=== PATIENT | female | born 1995 | race Hispanic/Latino ===

== ENCOUNTER 2018-02-18 22:52 | Emergency (ER) | payer OTHER, SELFPAY ==
--- OUTSIDE RECORDS SUMMARY | 2018-02-18 22:54 | XMS REPORT ---
:1995 Author Organization eClinicalWorks Care Team Providers Name Role Phone Meena Carreno Provider Role Unavailable Allergies, Adverse Reactions, Alerts Substance Reaction Event Type Amoxicillin Info Not Available Drug Allergy Problems Problem Type Condition Code Onset Dates Condition Status Problem BMI 45.0-49.9, adult Z68.42 Active Problem Hypomenorrhea/oligomenorrhea N91.5 Active Problem IUD (intrauterine device) in place Z97.5 Active Assessment BMI 45.0-49.9, adult Z68.42 Active Assessment Hypomenorrhea/oligomenorrhea N91.5 Active Assessment IUD (intrauterine device) in place Z97.5 Active Assessment IUD check up Z30.431 Active Medications Medication Code Code Instructions Start End Status Dosage System Date Date Mirena (52 MG) [facility] [place] [id number] 20 MCG/24HR Feb 26, Active not Intrauterine 2016 defined Results No Known Results Summary Purpose eClinicalWorks Submission
--- OUTSIDE RECORDS SUMMARY | 2018-02-18 22:54 | XMS REPORT ---
[...] device) in place Z97.5 Active Assessment IUD (intrauterine device) in place Z97.5 Active Assessment Encounter for removal of Z30.432 Active intrauterine contraceptive device Medications Medication Code Code Instructions Start End Status Dosage System Date Date Lo Loestrin Fe [facility] [id number] 1 MG-10 MCG / January 13, Active 1 tablet 10 MCG Orally 2018 Once a day Mirena (52 MG) [facility] [id number] 20 MCG/24HR Feb 26, Inactive not Intrauterine 2016 defined Results Name Result Date Reference Range Unit Abnormality Flag TEST URINE ----RESULTS neg 20180113 URINALYSIS AUTO W/O SCOPE (10368) ----PROTEIN 1+ 20180113 ----pH 5.5 20180113 ----NIT neg 20180113 ----CHARLI TRACE 20180113 ----URO 0.2 20180113 ----SPECIFIC GRAVITY 1.030 20180113 ----BLO 1+ 20180113 ----BILIRUBIN neg 20180113 ----KETONES neg 20180113 ----GLUCOSE neg 20180113 Summary Purpose eClinicalWorks Submission
[2018-02-19 00:03] LABS: Urine Blood TRACE (NEG); Urine Glucose NEGATIVE (NEG); Urine Protein 2+ (NEG); Urine Specific Gravity >1.030 (1.005-1.030)
[2018-02-19] MEDS ORDERED: KETOROLAC 30 MG/ML INJ ONE (00:13)
[2018-02-19 00:26] LABS: BUN Blood Urea Nitrogen 13 mg/dL (7-18); Bicarbonate 27 mmol/L (21-32); Glucose Level 110 mg/dL (74-106); Potassium 3.2 mmol/L (3.5-5.1); Sodium Level 142 mmol/L (136-145)
[2018-02-19 00:29] LABS: Absolute Lymphocytes (CBC) 1.9 K/uL (0.7-4.9); Absolute Monocytes 0.4 K/uL (0.1-1.3); Absolute Neutrophil 1.7 K/uL (1.8-8.0); Basophils % 0.1 % (0-1.3); Eosinophils % 0.4 % (0-4.4); Hematocrit 36.9 % (36.0-45.0); Lymphocytes % 46.3 % (15.3-44.8); MCH 26.7 pg (27.0-35.0); MCV 79.4 fL (80-100); MPV 7.8 fL (7.6-11.3); Monocytes % 9.9 % (3.3-12.3); RBC Red Blood Cell Count 4.64 M/uL (3.86-4.86)
[2018-02-19] MEDS ORDERED: POTASSIUM CL SA 10 MEQ TAB PO ONE (00:48)
--- NOTE | 2018-02-19 01:29 | EDPHYS ---
Physician Documentation [facility] Name: Nazanin Schmid Age: 22 yrs Sex: Female : 1995 Arrival Date: 02/18/2018 Time: 22:53 Bed 6 Private MD: ED Physician Zev Knox HPI: 02/19 00:40 This 22 yrs old Female presents to ER via Ambulatory with complaints of Chest jr8 Pain. 00:40 The patient or guardian reports chest pain that is located primarily in the anterior jr8 chest wall, bilaterally. The pain does not radiate. Associated signs and symptoms: Pertinent positives: body aches and chills . The chest pain is described as sharp. Duration: The patient or guardian reports multiple episodes. Modifying factors: The symptoms are alleviated by nothing. the symptoms are aggravated by breathing. Severity of pain: At its worst the pain was moderate in the emergency department the pain is unchanged. The patient has not experienced similar symptoms in the past. The patient has not recently seen a physician. Stated that she has had body aches and chills. Started to lose voice and now has chest pain with breathing. Denies cough or shortness of breath. Has felt feverish but subjectively only. Denies vomiting or diarrhea . 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 - Social history:: Smoking status: Patient/guardian denies using tobacco. - Ebola Screening: : No symptoms or risks identified at this time. ROS: 02/19 00:40 Eyes: Negative for injury, pain, redness, and discharge, ENT: Negative for injury, jr8 pain, and discharge, Neck: Negative for injury, pain, and swelling, Respiratory: Negative for shortness of breath, cough, wheezing, and pleuritic chest pain, Abdomen/GI: Negative for abdominal pain, nausea, vomiting, diarrhea, and constipation, Back: Negative for injury and pain, MS/Extremity: Negative for injury and deformity, Skin: Negative for injury, rash, and discoloration, Neuro: Negative for headache, weakness, numbness, tingling, and seizure. Cardiovascular: Positive for chest pain, Negative for edema, orthopnea, palpitations, paroxysmal nocturnal dyspnea. Exam: 00:40 Eyes: Pupils equal round and reactive to light, extra-ocular motions intact. Lids and jr8 lashes normal. Conjunctiva and sclera are non-icteric and not injected. Cornea within normal limits. Periorbital areas with no swelling, redness, or edema. ENT: Nares patent. No nasal discharge, no septal abnormalities noted. Tympanic membranes are normal and external auditory canals are clear. Oropharynx with no redness, swelling, or masses, exudates, or evidence of obstruction, uvula midline. Mucous membranes moist. Neck: Trachea midline, no thyromegaly or masses palpated, and no cervical lymphadenopathy. Supple, full range of motion without nuchal rigidity, or vertebral point tenderness. No Meningismus. Chest/axilla: Normal chest wall appearance and motion. Nontender with no deformity. No lesions are appreciated. Cardiovascular: Regular rate and rhythm with a normal S1 and S2. No gallops, murmurs, or rubs. Normal PMI, no JVD. No pulse deficits. Respiratory: Lungs have equal breath sounds bilaterally, clear to auscultation and percussion. No rales, rhonchi or wheezes noted. No increased work of breathing, no retractions or nasal flaring. Abdomen/GI: Soft, non-tender, with normal bowel sounds. No distension or tympany. No guarding or rebound. No evidence of tenderness throughout. Back: No spinal tenderness. No costovertebral tenderness. Full range of motion. Skin: Warm, dry with normal turgor. Normal color with no rashes, no lesions, and no evidence of cellulitis. MS/ Extremity: Pulses equal, no cyanosis. Neurovascular intact. Full, normal range of motion. Neuro: Awake and alert, GCS 15, oriented to person, place, time, and situation. Cranial nerves II-XII grossly intact. Motor strength 5/5 in all extremities. Sensory grossly intact. Cerebellar exam normal. Normal gait. Vital Signs: 02/18 23:15 BP 126 / 88; Pulse 102; Resp 18; Temp 98.5(O); Pulse Ox 99% on R/A; Weight 90.72 kg; tl2 Height 4 ft. 11 in. (149.86 cm); Pain 02/05; 02/19 01:38 BP 106 / 71; Pulse 89; Resp 18; Pulse Ox 99% on R/A; tl2 02/18 23:15 Body Mass Index 40.39 (90.72 kg, 149.86 cm) tl2 MDM: 02/18 23:55 Patient medically screened. [facility] 02/19 01:28 Data reviewed: vital signs, nurses notes, lab test result(s), EKG, radiologic studies, [facility] plain films. Data interpreted: Pulse oximetry: on room air is 99 %. Interpretation: normal. Counseling: I had a detailed discussion with the patient and/or guardian regarding: the historical points, exam findings, and any diagnostic results supporting the discharge/admit diagnosis, lab results, radiology results, the need for outpatient follow up, a family practitioner, to return to the emergency department if symptoms worsen or persist or if there are any questions or concerns that arise at home. 02/18 23:31 Order name: Urine Dipstick--Ancillary (enter results) [facility] 02/18 23:31 Order name: Urine --Ancillary (enter results) [facility] 02/19 00:01 Order name: XRAY Chest Pa And Lat (2 Views) [facility] 02/19 00:01 Order name: CBC with Diff; Complete Time: 00:35 [facility] 02/19 00:01 Order name: Basic Metabolic Panel; Complete Time: 00:31 [facility] 02/19 00:01 Order name: EKG - Nurse/Tech; Complete Time: 00:11 [facility] Administered Medications: 00:11 Drug: TORadol 30 mg Route: IVP; Site: right antecubital; tl2 01:00 Follow up: Response: No adverse reaction; Pain is decreased tl2 00:45 Drug: Potassium Chloride 40 mEq Route: PO; tl2 01:43 Follow up: Response: No adverse reaction tl2 Disposition: 02/19/18 01:28 Discharged to Home. Impression: Chest wall pain, Chest pain on breathing. - Condition is Stable. - Discharge Instructions: Chest Wall Pain. - Prescriptions for Ibuprofen 800 mg Oral Tablet - take 1 tablet by ORAL route every 8 hours As needed take with food; 30 tablet. - Medication Reconciliation Form, Thank You Letter, Antibiotic Education, Prescription Opioid Use form. - Follow up: Private Physician; When: 2 - 3 days; Reason: Recheck today's complaints, Continuance of care, Re-evaluation by your physician. - Problem is new. - Symptoms have improved. Addendum: 02/22/2018 17:35 Co-signature as Attending Physician, Zev Knox MD. g s Signatures: Dispatcher [employer] EDMS Freddie Larios PA PA jr8 Gabrielle Crain RN RN tl2 Zev nKox MD MD Corrections: (The following items were deleted from the chart) 02/19 01:29 01:28 02/19/2018 01:28 Discharged to Home. Impression: Chest wall pain. Condition is jr8 Stable. Forms are Medication Reconciliation Form, Thank You Letter, Antibiotic Education, Prescription Opioid Use. Follow up: Private Physician; When: 2 - 3 days; Reason: Recheck today's complaints, Continuance of care, Re-evaluation by your physician. Problem is new. Symptoms have improved. jr8 01:44 01:29 02/19/2018 01:28 Discharged to Home. Impression: Chest wall pain; Chest pain on tl2 breathing. Condition is Stable. Forms are Medication Reconciliation Form, Thank You Letter, Antibiotic Education, Prescription Opioid Use. Follow up: Private Physician; When: 2 - 3 days; Reason: Recheck today's complaints, Continuance of care, Re-evaluation by your physician. Problem is new. Symptoms have improved. jr8
--- NOTE | 2018-02-19 01:29 | ER ---
Nurse's Notes [facility] Name: Nazanin Schmid Age: 22 yrs Sex: Female : 1995 Arrival Date: 02/18/2018 Time: 22:53 Bed 6 Private MD: Diagnosis: Chest wall pain;Chest pain on breathing Presentation: 02/18 23:13 Presenting complaint: Patient states: I was sick on Thursday with aching all over and tl2 nausea. Yesterday my chest pain started and I'm still having it today. Reports mid chest pain that goes to upper back. Denies nausea and vomiting but reports continued achiness and increased chest pain with a deep breath. Transition of care: patient was not received from another setting of care. Onset of symptoms was February 16, 2018. Risk Assessment: Do you want to hurt yourself or someone else? Patient reports no desire to harm self or others. Initial Sepsis Screen: Does the patient meet any 2 criteria? No. Patient's initial sepsis screen is negative. Does the patient have a suspected source of infection? No. Patient's initial sepsis screen is negative. Care prior to arrival: None. 23:13 Method Of Arrival: Ambulatory tl2 23:13 Acuity: ZARA 3 tl2 Triage Assessment: 23:15 General: Appears in no apparent distress. uncomfortable, Behavior is calm, cooperative, tl2 appropriate for age. Pain: Complains of pain in mid-sternal area Pain radiates to thoracic area Pain currently is 8 out of 10 on a pain scale. Neuro: Level of Consciousness is awake, alert, obeys commands, Oriented to person, place, time, situation. Cardiovascular: Chest pain is described as mild, quality is sharp, is located in chest wall radiates back is aggravated by breathing. Respiratory: Airway is patent Respiratory effort is even, unlabored, Respiratory pattern is regular, symmetrical. GI: No signs and/or symptoms were reported involving the gastrointestinal system. : No signs and/or symptoms were reported regarding the genitourinary system. Derm: Skin is pink, warm \T\ dry. 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 - Social history:: Smoking status: Patient/guardian denies using tobacco. - Ebola Screening: : No symptoms or risks identified at this time. Screenin:19 Abuse screen: Denies threats or abuse. Nutritional screening: No deficits noted. tl2 Tuberculosis screening: No symptoms or risk factors identified. Fall Risk None identified. Assessment: 23:27 General: see triage assessment. tl2 02/19 00:55 Reassessment: Patient appears in no apparent distress at this time. Patient and/or tl2 family updated on plan of care and expected duration. Pain level reassessed. Patient is alert, oriented x 3, equal unlabored respirations, skin warm/dry/pink. Awaiting lab results and further orders. 01:38 Reassessment: Patient appears in no apparent distress at this time. Patient and/or tl2 family updated on plan of care and expected duration. Pain level reassessed. Patient is alert, oriented x 3, equal unlabored respirations, skin warm/dry/pink. Pt verbalized understanding of discharge instructions, need for follow up and prescription usage Patient states feeling better. Vital Signs: 02/18 23:15 BP 126 / 88; Pulse 102; Resp 18; Temp 98.5(O); Pulse Ox 99% on R/A; Weight 90.72 kg; tl2 Height 4 ft. 11 in. (149.86 cm); Pain 8/10; 02/19 01:38 BP 106 / 71; Pulse 89; Resp 18; Pulse Ox 99% on R/A; tl2 02/18 23:15 Body Mass Index 40.39 (90.72 kg, 149.86 cm) tl2 ED Course: 02/18 22:53 Patient arrived in ED. am2 23:13 Gabrielle Crain, RN is Primary Nurse. tl2 23:14 Triage completed. tl2 23:15 Arm band placed on right wrist. tl2 23:19 Patient has correct armband on for positive identification. Bed in low position. Call tl2 light in reach. Side rails up X 1. Pulse ox on. NIBP on. 23:19 Patient maintains SpO2 saturation greater than 95% on room air. tl2 23:28 Inserted saline lock: 22 gauge in right antecubital area, using aseptic technique. tl2 Blood collected. 23:38 Freddie Larios PA is PHCP. jr8 23:38 Zev Knox MD is Attending Physician. jr8 02/19 00:17 Patient moved to radiology via wheelchair. kw 00:17 X-ray completed. Patient tolerated procedure well. kw 00:17 Patient moved back from radiology. kw 00:18 XRAY Chest Pa And Lat (2 Views) In Process Unspecified. EDMS 01:38 No provider procedures requiring assistance completed. IV discontinued, intact, tl2 bleeding controlled, No redness/swelling at site. Pressure dressing applied. Administered Medications: 00:11 Drug: TORadol 30 mg Route: IVP; Site: right antecubital; tl2 01:00 Follow up: Response: No adverse reaction; Pain is decreased tl2 00:45 Drug: Potassium Chloride 40 mEq Route: PO; tl2 01:43 Follow up: Response: No adverse reaction tl2 Outcome: 01:28 Discharge ordered by MD. jr8 01:38 Discharged to home ambulatory, with family. tl2 01:38 Condition: stable 01:38 Discharge instructions given to patient, Instructed on discharge instructions, follow up and referral plans. medication usage, Demonstrated understanding of instructions, follow-up care, medications, Prescriptions given X 1. 01:44 Patient left the ED. tl2 Signatures: Dispatcher [employer] EDMS Nusrat Lara Josh, PA PA jr8 Gabrielle Crain RN RN tl2 Treva Cabral am2
[2018-02-19 01:56] VITALS: TEMP 98.5; O2SAT 99
[2018-02-19 01:57] VITALS: BP 106/71
--- NOTE | 2018-02-19 08:15 | RAD REPORT ---
EXAM DESCRIPTION: Kori Cox (2 Views)02/19/2018 12:20 am CLINICAL HISTORY: Chest pain COMPARISON: none FINDINGS: The lungs appear clear of acute infiltrate. The heart is normal size IMPRESSION: No acute abnormalities displayed
--- NOTE | 2018-02-20 08:36 | EKG ---
Test Date: 2018-02-19 Test Time: 00:04:03 De Icer Finisher: [place] MEASUREMENT RESULTS: Intervals: Rate: 98 AL: 132 QRSD: 88 QT: 332 QTc: 423 [place]: P: 19 AL: 132 QRS: 10 T: 29 INTERPRETIVE STATEMENTS: Normal sinus rhythm Minimal voltage criteria for LVH, may be normal variant Borderline ECG No previous ECG available for comparison Electronically Signed On 02-20-18 08:35:30 CDT by Alessandro Santos
== END 2018-02-19 01:44 | disposition home or self-care (01) ==
LOC: ER 22:52
DX: R07.89 Other chest pain (principal); Z88.1 Allergy status to other antibiotic agents
CPT/HCPCS: 36415; 71046; 80048; 81003; 81025; 85025; 93005; 96374; 99284

== ENCOUNTER 2018-04-10 21:51 | Emergency (ER) | payer SELFPAY ==
--- OUTSIDE RECORDS SUMMARY | 2018-04-10 21:52 | XMS REPORT ---
[...] Dosage System Date Date Mirena (52 MG) [facility] [id number] 20 MCG/24HR Feb 26, Active not Intrauterine 2016 defined Results No Known Results Summary Purpose eClinicalWorks Submission
--- OUTSIDE RECORDS SUMMARY | 2018-04-10 21:52 | XMS REPORT ---
[...] Dosage System Date Date Lo Loestrin Fe [facility] [id number] 1 MG-10 MCG / January 13, Active 1 tablet 10 MCG Orally 2018 Once a day Mirena (52 MG) [facility] [id number] 20 MCG/24HR Feb 26, Inactive not Intrauterine 2016 defined Results Name Result Date Reference Range Unit Abnormality Flag TEST URINE ----RESULTS neg 20180113 URINALYSIS AUTO W/O SCOPE (52017) ----PROTEIN 1+ 20180113 ----pH 5.5 20180113 ----NIT neg 20180113 ----CHARLI TRACE 20180113 ----URO 0.2 20180113 ----SPECIFIC GRAVITY 1.030 20180113 ----BLO 1+ 20180113 ----BILIRUBIN neg 20180113 ----KETONES neg 20180113 ----GLUCOSE neg 20180113 Summary Purpose eClinicalWorks Submission
--- NOTE | 2018-04-10 22:22 | ER ---
Nurse's Notes [facility] Name: Nazanin Schmid Age: 23 yrs Sex: Female : 1995 Arrival Date: 04/10/2018 Time: 21:53 Bed 26 Private MD: Diagnosis: Periapical abscess without sinus Presentation: 04/10 21:58 Presenting complaint: Patient states: Right lower molar pain for 1 week. Redness and aj swelling noted at the gum line. Transition of care: patient was not received from another setting of care. Onset of symptoms was April 03, 2018. Risk Assessment: Do you want to hurt yourself or someone else? Patient reports no desire to harm self or others. Initial Sepsis Screen: Does the patient meet any 2 criteria? No. Patient's initial sepsis screen is negative. Does the patient have a suspected source of infection? No. Patient's initial sepsis screen is negative. Care prior to arrival: None. 21:58 Method Of Arrival: Ambulatory aj 21:58 Acuity: ZARA 5 aj Triage Assessment: 21:59 General: Appears in no apparent distress. uncomfortable, Behavior is calm, cooperative, aj appropriate for age. Pain: Complains of pain in lower right second molar. EENT: Reports pain in lower right second molar. Neuro: Level of Consciousness is awake, alert, obeys commands, Oriented to person, place, time, situation, Appropriate for age. Respiratory: Airway is patent Respiratory effort is even, unlabored, Respiratory pattern is regular, symmetrical. Derm: Skin is intact, is healthy with good turgor, Skin is pink, warm \T\ dry. normal. 21:59 EENT: Dental caries noted in lower right second molar (#31). 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 - Social history:: Smoking status: Patient/guardian denies using tobacco. - Ebola Screening: : Patient negative for fever greater than or equal to 101.5 degrees Fahrenheit, and additional compatible Ebola Virus Disease symptoms Patient denies exposure to infectious person Patient denies travel to an Ebola-affected area in the 21 days before illness onset No symptoms or risks identified at this time. Screenin:06 Abuse screen: Denies threats or abuse. Nutritional screening: No deficits noted. tl3 Tuberculosis screening: No symptoms or risk factors identified. Fall Risk None identified. Assessment: 22:06 General: Appears uncomfortable, well groomed, well developed, well nourished, Behavior tl3 is calm, cooperative, appropriate for age. Pain: Complains of pain in lower right second molar (#31). Neuro: Level of Consciousness is awake, alert, obeys commands, Oriented to person, place, time, situation, Appropriate for age. Cardiovascular: Patient's skin is warm and dry. Respiratory: Airway is patent Respiratory effort is even, unlabored, Respiratory pattern is regular, symmetrical. GI: No signs and/or symptoms were reported involving the gastrointestinal system. : No signs and/or symptoms were reported regarding the genitourinary system. EENT: Dental caries noted in lower right second molar (#31) previous root canal done on this molar. Derm: No deficits noted. No signs and/or symptoms reported regarding the dermatologic system. Musculoskeletal: No deficits noted. No signs and/or symptoms reported regarding the musculoskeletal system. Vital Signs: 21:59 BP 155 / 88; Pulse 104; Resp 19; Temp 98.4; Pulse Ox 97% on R/A; Weight 106.14 kg; aj Height 4 ft. 11 in. (149.86 cm); 21:59 Body Mass Index 47.26 (106.14 kg, 149.86 cm) ED Course: 21:53 Patient arrived in ED. am2 21:59 Triage completed. aj 21:59 Arm band placed on right wrist. Patient placed in an exam room. aj 22:06 Janet Gupta, RN is Primary Nurse. tl3 22:06 Patient has correct armband on for positive identification. tl3 22:06 No provider procedures requiring assistance completed. Patient did not have IV access tl3 during this emergency room visit. 22:08 Zev Knox MD is Attending Physician. Administered Medications: No medications were administered Outcome: 22:22 Discharge ordered by . 22:59 Discharged to home ambulatory. tl3 22:59 Condition: stable 22:59 Discharge instructions given to patient, Instructed on discharge instructions, follow up and referral plans. medication usage, Demonstrated understanding of instructions, follow-up care, medications, Prescriptions given X 2. 23:00 Patient left the ED. tl3 Signatures: Treva Strong, RN Treva Doherty Gregory, MD MD gs Lowrey, Tammy, RN RN tl3
[2018-04-10 23:10] VITALS: BP 155/88; TEMP 98.4; O2SAT 97
--- NOTE | 2018-04-11 23:00 | EDPHYS ---
Physician Documentation [facility] Name: Nazanin Schmid Age: 23 yrs Sex: Female : 1995 Arrival Date: 04/10/2018 Time: 21:53 Bed 26 Private MD: ED Physician Zev Knox HPI: 04/11 02:14 This 23 yrs old Female presents to ER via Ambulatory with complaints of gs Toothache. 02:14 The patient presents with pain, redness, swelling. The problem is located in the lower gs right first molar. Onset: The symptoms/episode began/occurred 3 day(s) ago, and became worse and became persistent. Duration: The symptoms are continuous. Modifying factors: the symptoms are aggravated by chewing. Associated signs and symptoms: Pertinent negatives: dysphagia, fever, inability to eat. Severity of symptoms: At their worst the symptoms were moderate, in the emergency department the symptoms are unchanged. The patient has experienced similar episodes in the past, a few times. 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 - Social history:: Smoking status: Patient/guardian denies using tobacco. - Ebola Screening: : Patient negative for fever greater than or equal to 101.5 degrees Fahrenheit, and additional compatible Ebola Virus Disease symptoms Patient denies exposure to infectious person Patient denies travel to an Ebola-affected area in the 21 days before illness onset No symptoms or risks identified at this time. ROS: 04/11 02:14 All other systems are negative. gs Exam: 02:14 Head/Face: Normocephalic, atraumatic. Eyes: Pupils equal round and reactive to light, gs extra-ocular motions intact. Lids and lashes normal. Conjunctiva and sclera are non-icteric and not injected. Cornea within normal limits. Periorbital areas with no swelling, redness, or edema. Neck: Trachea midline, no thyromegaly or masses palpated, and no cervical lymphadenopathy. Supple, full range of motion without nuchal rigidity, or vertebral point tenderness. No Meningismus. Chest/axilla: Normal chest wall appearance and motion. Nontender with no deformity. No lesions are appreciated. Cardiovascular: Regular rate and rhythm with a normal S1 and S2. No gallops, murmurs, or rubs. Normal PMI, no JVD. No pulse deficits. Respiratory: Lungs have equal breath sounds bilaterally, clear to auscultation and percussion. No rales, rhonchi or wheezes noted. No increased work of breathing, no retractions or nasal flaring. Abdomen/GI: Soft, non-tender, with normal bowel sounds. No distension or tympany. No guarding or rebound. No evidence of tenderness throughout. Back: No spinal tenderness. No costovertebral tenderness. Full range of motion. Skin: Warm, dry with normal turgor. Normal color with no rashes, no lesions, and no evidence of cellulitis. MS/ Extremity: Pulses equal, no cyanosis. Neurovascular intact. Full, normal range of motion. Neuro: Awake and alert, GCS 15, oriented to person, place, time, and situation. Cranial nerves II-XII grossly intact. Motor strength 5/5 in all extremities. Sensory grossly intact. Cerebellar exam normal. Normal gait. 02:14 Constitutional: The patient appears alert, awake. 02:14 ENT: Dental exam: abscess, that is mild, specifically in the lower right first molar (#30), very mild, more cellulitis than abscess minimally boggy. Vital Signs: 04/10 21:59 BP 155 / 88; Pulse 104; Resp 19; Temp 98.4; Pulse Ox 97% on R/A; Weight 106.14 kg; aj Height 4 ft. 11 in. (149.86 cm); 21:59 Body Mass Index 47.26 (106.14 kg, 149.86 cm) aj MDM: 22:21 Patient medically screened. 04/11 02:14 Differential diagnosis: dental caries, gingivitis, dental abscess. Data reviewed: vital gs signs, nurses notes. Response to treatment: There is no appreciated change of the patient's symptoms at this time, and as a result, I will discharge patient. Administered Medications: No medications were administered Disposition: 04/10/18 22:22 Discharged to Home. Impression: Periapical abscess without sinus. - Condition is Stable. - Discharge Instructions: Dental Abscess. - Prescriptions for Clindamycin HCl 150 mg Oral Capsule - take 1 capsule by ORAL route every 6 hours for 7 days; 28 capsule. Tylenol- Codeine #4 300-60 mg Oral Tablet - take 1 tablet by ORAL route every 6 hours As needed; 6 tablet. - Medication Reconciliation Form, Thank You Letter, Antibiotic Education, Prescription Opioid Use form. - Follow up: Private Physician; When: 2 - 3 days; Reason: Re-evaluation by your physician. Signatures: Treva Strong RN RN aj Starr, Gregory, MD MD Janet Gupta RN RN tl3 Corrections: (The following items were deleted from the chart) 04/10 23:00 22:22 04/10/2018 22:22 Discharged to Home. Impression: Periapical abscess without tl3 sinus. Condition is Stable. Forms are Medication Reconciliation Form, Thank You Letter, Antibiotic Education, Prescription Opioid Use. Follow up: Private Physician; When: 2 - 3 days; Reason: Re-evaluation by your physician. gs
== END 2018-04-10 23:00 | disposition home or self-care (01) ==
LOC: ER 21:51
DX: K04.7 Periapical abscess without sinus (principal); Z88.1 Allergy status to other antibiotic agents
CPT/HCPCS: 99282

== ENCOUNTER 2020-10-24 19:57 | Emergency (ER) | payer OTHER, SELFPAY ==
--- OUTSIDE RECORDS SUMMARY | 2020-10-24 20:00 | XMS REPORT | Continuity of Care Document ---
:1995 Author Organization [facility] t Address [address] [place] [address] Care Team Providers Name Role Phone Gerry Philippe Attending Clinician Payers Payer Name Policy Type Policy Number Effective Date Expiration Date S ource Problems Condition Condition Condition Status Onset Resolution Last Treating Co mments Source Name Details Category Date Date Treatment Clinician Date BMI BMI Problem Active [facility] 45.0-49.9, 45.0-49.9, Imelda kes - adult adult [facility] Hypomenorr Hypomenorr Problem Active [facility] hea/oligom hea/oligom Imelda kes - enorrhea enorrhea [facility] IUD IUD Diagnosis Active [facility] (intrauter (intrauter Imelda kes - ine ine Memoria device) in device) in [facility] Encounter Encounter Diagnosis Active [facility] - removal of removal of Me moria intrauteri intrauteri l ne ne Outpati contracept contracept en t niya device niya device Cl inics Allergies, Adverse Reactions, Alerts Allergy Allergy Status Severity Reaction(s) Onset Inactive Treating Comm ents Source Name Type Date Date Clinician amoxicil DA Active [facility] 2015-06 [facility] [place] Amoxicil Adverse Active Info Not [facility] Reaction Available [facility] Medications Ordered Filled Start Stop Current Ordering Indication Dosage Frequency Signature Comments Components Source Medication Medication Date Date Medication? Clinician (SIG) Name Name Meera Thompson Yes Meena [address] [facility] Fe Fe 01-13 [facility] - 00:00: [facility] 00 [facility] Mirena (52 Mirena (52 Yes Meena not [facility] MG) MG) 02-26 [facility]o defined [facility] - 00:[facility]: [facility] 00 [facility] Procedures This patient has no known procedures. Encounters Start End Encounter Admission Attending Care Care Encounter Source Date/Time Date/Time Type Type Clinicians Facility Department ID 2020-08-01 2020-08-01 Office NATE Saab [id number] 08:00:00 08:30:00 Visit Valerie Garrett [facility] [id number] [facility] [id number] MATERNAL [id number] & CHILD [address] [place] [address] 2018-01-13 2018-01-13 [facility] [id number] [address] 10:30:00 10:30:00 t [facility] 2017-12-02 2017-12-02 [facility] [id number] 13:45:00 13:45:00 t [facility] Results Test Description Test Time Test Comments Results Result [facility] e Comments - US [facility] 2020-10-05 UP 13:53:00 [facility] HARRISGINGER FERNANDEZ : 1995 Sex: F Patient Name: GINGER HARRIS Unit No: [id number] EXAMS: CPT CODE: [id number] [place] [address] [facility] [address], [place] [address] OBSTETRICAL ULTRASOUND REPORT ------- Pat. Name: GINGER HARRIS Pat. No: [id number] Study Date: 10/05/2020 12:49pm , Age: 11 1995, 25 Pregnancies: 2, Para 1 LMP: Unknown GA by US: 21w5d GA Selected: 22w1d (From Known E) SID: 02/07/2021 Referring MD: DMITRIY TOVAR Railway Switchman: Estrellita Gilmore RDMS CPT4: USPREGFU Admitting MD: DMITRIY TOVAR Hist/Ind: FOLLOW UP HEART AND BRAIN ANATOMY SCAN 1 ------- MEASUREMENTS AGE GROWTH EVALUATION Measurement GA Range Srce %for GA Ratios ----- ---- ------- ---- BPD 5.2 cm 21w6d (62k8y-47g6c) Hadl BPD 43% FL/BPD 0.72 HC 19.3 cm 21w3d (31e9l-17c7c) Hadl HC 29% FL/AC 0.21 (0.20 - 0.24) APD 5.6 cm APD HC/AC 1.08 (1.04 - 1.23) TAD 5.8 cm TAD CI 0.80 (0.70 - 0.86) AC 17.9 cm 22w4d (69i8o-13k6f) Hadl AC 59% FL 3.8 cm 21w4d (23e9y-85q7w) Hadl FL 38% HL 3.7 cm 23w0d (17y8y-03t0p) Aram HL 64% GA for sonogram 21w5d (98g5c-26v1g) Weight Estimate: based on (BPD,HC,AC,FL) Hadlock Weight: 493 gm (421-565) Hadlock : 1lbs, 1oz Normal: 490 gm (327-930) Macario Wt% 50% for 22.1 wks Cervical Length: 5.0 cm Heart Rate: 155 bpm ------- CLINICAL SUMMARY Type of Gestation: Liu Intrauterine in transverse presentation. size is appropriate for gestational age. motion and organs seen: heart motion seen Four chamber heart observed Left ventricular outflow tract (LVOT) seen Right ventricular outflow tract (RVOT) seen Normal intracranial anatomy seen anatomic survey is limited due to patient body habitus. Placental location: Anterior Placental maturity : Grade 1 There is no evidence of placenta previa. [facility] [place] [facility] NAME: GINGER HARRIS Radiology Department PHYS: Dmitriy Gaxiola DO [address] : 1995 AGE: 25 SEX: Jeanmarie [place], [place] [address] LOC: TalishaRAD PHONE #: [phone] EXAM DATE: 10/05/2020 STATUS: REG CLI FAX #: [phone] RAD NO: Page 1 Signed Report (CONTINUED) Patient Name: GINGER HARRIS Unit No: [id number] EXAMS: CPT CODE: [id number] [place] [address] <Continued> Amniotic fluid volume is normal. Uterus and adnexa: No significant abnormality is seen. Thank you for allowing us to participate in the care of this patient. Hema Byrd M.D. Electronic Signature 10/05/2020 01:53pm at 1353 Reported and signed by: Hema Byrd MD CC: Chucky Sorenson MD; Dmitriy Tovar DO Technologist: Mali Stallworth RDMS; Estrellita Probe: Trnscrbd D/ (1353) [email or web address] Orig Print D/T: S: 10/05/2020 ([id number]) [facility] [place] [facility] NAME: GINGER HARRIS Radiology Department PHYS: [address] Dmitriy Tovar DO [address] : 1995 AGE: 25 SEX: F [place] [address] LOC: TalishaRAD PHONE #: [phone] EXAM DATE: 10/05/2020 STATUS: REG CLI FAX #: [phone] RAD NO: Page 2 Signed Report Patient Name: GINGER HARRIS Unit No: [id number] EXAMS: CPT CODE: [id number] [place] [id number] <Continued> [facility] [place] [facility] NAME: GINGER HARRIS Radiology Department PHYS: DORYAiyanaDmitriy Fletcher DO [address] : 1995 AGE: 25 SEX: F [place] [address] LOC: Jeanmarie.RAD PHONE #: [phone] EXAM DATE: 10/05/2020 STATUS: REG CLI FAX #: [phone] RAD NO: Page 3 Signed Report
[2020-10-24 21:58] LABS: SARS-COV-2 RT PCR POSITIVE (NEGATIVE)
--- NOTE | 2020-10-24 22:03 | ER ---
Nurse's Notes [facility] Name: Nazanin Schmid Age: 25 yrs Sex: Female : 1995 Arrival Date: 10/24/2020 Time: 20:12 Bed 23 Private MD: Diagnosis: COVID-19 Presentation: 10/24 20:14 Chief complaint: Patient states: I think I am having covid symptoms. It started with jb4 soar throat and a cough. I took tylenol for a temp of 102 at home about an hour ago. Coronavirus screen: At this time, the client does not indicate any symptoms associated with coronavirus-19. Ebola Screen: No symptoms or risks identified at this time. Initial Sepsis Screen: Does the patient meet any 2 criteria? Temp <36.0*C (96.8*F)) or > 38.3*C (100.9*F). Does the patient have a suspected source of infection? No. Patient's initial sepsis screen is negative. Risk Assessment: Do you want to hurt yourself or someone else? Patient reports no desire to harm self or others. Onset of symptoms was October 22, 2020. Transition of care: patient was not received from another setting of care. 20:14 Method Of Arrival: Ambulatory jb4 20:14 Acuity: ZARA 4 jb4 Historical: - Allergies: 20:18 Amoxicillin (Rash); jb4 - Home Meds: 20:18 Vitamin Oral [Active]; jb4 - PMHx: 20:18 None; jb4 - PSHx: 20:18 ; right arm; jb4 - Immunization history:: Adult Immunizations up to date. - Social history:: Smoking status: Patient denies any tobacco usage or history of. Patient/guardian denies using alcohol, street drugs. Screenin:36 Abuse screen: Denies threats or abuse. Denies injuries from another. Nutritional mg2 screening: No deficits noted. Tuberculosis screening: No symptoms or risk factors identified. Fall Risk Assessment: 20:36 General: Appears in no apparent distress. comfortable, Behavior is calm, cooperative. mg2 General: Behavior is. Pain: Complains of pain in throat. Neuro: Level of Consciousness is awake, alert, obeys commands, Oriented to person, place, time, situation. Cardiovascular: Capillary refill < 3 seconds Patient's skin is warm and dry. Respiratory: Reports cough that is Airway is patent Trachea midline Respiratory effort is even, unlabored, Respiratory pattern is regular, symmetrical. GI: No signs and/or symptoms were reported involving the gastrointestinal system. : No signs and/or symptoms were reported regarding the genitourinary system. EENT: Reports sore throat. Derm: Skin is intact, is healthy with good turgor, Skin is pink, warm \T\ dry. normal. Musculoskeletal: Circulation, motion, and sensation intact. Capillary refill < 3 seconds. Vital Signs: 20:14 BP 122 / 85; Pulse 110; Resp 18; Temp 98.6(O); Pulse Ox 100% on R/A; Weight 119.75 kg jb4 (R); Height 4 ft. 11 in. (149.86 cm); Pain 0/10; 22:14 BP 120 / 80; Pulse 90; Resp 18; Temp 98.5; Pulse Ox 100% on R/A; mg2 20:14 Body Mass Index 53.32 (119.75 kg, 149.86 cm) jb4 ED Course: 20:12 Patient arrived in ED. es 20:16 Triage completed. jb4 20:18 Arm band placed on right wrist. jb4 20:36 Dar Carrillo, LUCIUS is Primary Nurse. mg2 20:36 No provider procedures requiring assistance completed. mg2 20:37 Patient has correct armband on for positive identification. mg2 20:45 Freddie Larios PA is PHCP. jr8 20:45 Raleigh Mariee MD is Attending Physician. jr8 20:45 Patient did not have IV access during this emergency room visit. mg2 21:03 COVID swab sent to lab. Flu and/or RSV swab sent to lab. Strep swab sent to lab. mg2 Administered Medications: No medications were administered Outcome: 22:02 Discharge ordered by . jr8 22:15 Discharged to home ambulatory. mg2 22:15 Condition: stable 22:15 Discharge instructions given to patient, Instructed on discharge instructions, follow up and referral plans. Demonstrated understanding of instructions, follow-up care. 22:15 Patient left the ED. mg2 Signatures: Meredith Blackburn Freddie Larios PA PA jr8 Lito Easley RN RN jb4 Dar Carrillo, LUCIUS RN mg2 Corrections: (The following items were deleted from the chart) 20:37 20:36 Respiratory: Airway is patent Trachea midline Respiratory effort is even, mg2 unlabored, Respiratory pattern is regular, symmetrical, mg2
--- NOTE | 2020-10-24 22:03 | EDPHYS ---
Physician Documentation [facility] Name: Nazanin Schmid Age: 25 yrs Sex: Female : 1995 Arrival Date: 10/24/2020 Time: 20:12 Bed 23 Private MD: ED Physician Raleigh Mariee HPI: 10/24 22:10 This 25 yrs old Female presents to ER via Ambulatory with complaints of COVID jr8 symptoms. 22:10 Patient stated that her mother was recently diagnosed with COVID and now she is showing jr8 s/s. Stated that she has cough, congestion, runny nose, sore throat . Severity of symptoms: At their worst the symptoms were mild in the emergency department the symptoms are unchanged. The patient has not experienced similar symptoms in the past. The patient has not recently seen a physician. Historical: - Allergies: 20:18 Amoxicillin (Rash); jb4 - Home Meds: 20:18 Vitamin Oral [Active]; jb4 - PMHx: 20:18 None; jb4 - PSHx: 20:18 ; right arm; jb4 - Immunization history:: Adult Immunizations up to date. - Social history:: Smoking status: Patient denies any tobacco usage or history of. Patient/guardian denies using alcohol, street drugs. ROS: 22:10 Eyes: Negative for injury, pain, redness, and discharge, Neck: Negative for injury, jr8 pain, and swelling, Cardiovascular: Negative for chest pain, palpitations, and edema, Abdomen/GI: Negative for abdominal pain, nausea, vomiting, diarrhea, and constipation, Back: Negative for injury and pain, MS/Extremity: Negative for injury and deformity, Skin: Negative for injury, rash, and discoloration, Neuro: Negative for headache, weakness, numbness, tingling, and seizure. 22:10 ENT: Positive for rhinorrhea, sinus congestion, sore throat. 22:10 Respiratory: Positive for cough, Negative for dyspnea on exertion, shortness of breath, sputum production, wheezing. Exam: 22:10 Eyes: Pupils equal round and reactive to light, extra-ocular motions intact. Lids and jr8 lashes normal. Conjunctiva and sclera are non-icteric and not injected. Cornea within normal limits. Periorbital areas with no swelling, redness, or edema. ENT: Nares patent. No nasal discharge, no septal abnormalities noted. Tympanic membranes are normal and external auditory canals are clear. Oropharynx with no redness, swelling, or masses, exudates, or evidence of obstruction, uvula midline. Mucous membranes moist. Neck: Trachea midline, no thyromegaly or masses palpated, and no cervical lymphadenopathy. Supple, full range of motion without nuchal rigidity, or vertebral point tenderness. No Meningismus. Cardiovascular: Regular rate and rhythm with a normal S1 and S2. No gallops, murmurs, or rubs. Normal PMI, no JVD. No pulse deficits. Respiratory: Lungs have equal breath sounds bilaterally, clear to auscultation and percussion. No rales, rhonchi or wheezes noted. No increased work of breathing, no retractions or nasal flaring. Abdomen/GI: Soft, non-tender, with normal bowel sounds. No distension or tympany. No guarding or rebound. No evidence of tenderness throughout. Skin: Warm, dry with normal turgor. Normal color with no rashes, no lesions, and no evidence of cellulitis. MS/ Extremity: Pulses equal, no cyanosis. Neurovascular intact. Full, normal range of motion. Neuro: Awake and alert, GCS 15, oriented to person, place, time, and situation. Motor strength 5/5 in all extremities. Sensory grossly intact. Vital Signs: 20:14 BP 122 / 85; Pulse 110; Resp 18; Temp 98.6(O); Pulse Ox 100% on R/A; Weight 119.75 kg jb4 (R); Height 4 ft. 11 in. (149.86 cm); Pain 0/10; 22:14 BP 120 / 80; Pulse 90; Resp 18; Temp 98.5; Pulse Ox 100% on R/A; mg2 20:14 Body Mass Index 53.32 (119.75 kg, 149.86 cm) jb4 MDM: 20:45 Patient medically screened. [facility] 22:01 Data reviewed: vital signs, nurses notes, lab test result(s), and as a result, I will jr8 discharge patient. Data interpreted: Pulse oximetry: on room air is 100 %. Interpretation: normal. Counseling: I had a detailed discussion with the patient and/or guardian regarding: the historical points, exam findings, and any diagnostic results supporting the discharge/admit diagnosis, lab results, the need for outpatient follow up, a family practitioner, to return to the emergency department if symptoms worsen or persist or if there are any questions or concerns that arise at home. 10/24 20:45 Order name: Strep; Complete Time: 21:44 mg2 10/24 21:24 Order name: Throat Culture EDCO 10/24 21:58 Order name: COVID-19/FLU A+B; Complete Time: 22:03 EDMS Administered Medications: No medications were administered Disposition: 23:52 Co-signature as Attending Physician, Raleigh Mariee MD. [email or web address] Disposition: 10/24/20 22:02 Discharged to Home. Impression: COVID-19. - Condition is Stable. - Discharge Instructions: COVID-19. - Medication Reconciliation Form, Thank You Letter, Antibiotic Education, Prescription Opioid Use, Work release form form. - Follow up: Private Physician; When: 7 - 10 days; Reason: Recheck today's complaints, Continuance of care, Re-evaluation by your physician. - Problem is new. - Symptoms are unchanged. - Notes: Vitamin C 1,000 mg 3 x a day Vitamin D 4,000IU daily Zinc 100 mg Daily Melatonin 10 mg Daily Signatures: Dispatcher [employer] EDCO Raleigh Mariee MD MD pkl Freddie Larios PA PA jr8 Lito Easley, LUCIUS RN jb4 Dar Carrillo RN RN mg2 Corrections: (The following items were deleted from the chart) 21:00 20:46 Influenza Screen (A \T\ B)+BA.LAB.BRZ ordered. EDCO EDCO 21:02 20:46 CORONAVIRUS+MR.LAB.BRZ ordered. EDCO EDCO 22:15 22:02 10/24/2020 22:02 Discharged to Home. Impression: COVID-19. Condition is Stable. mg2 Forms are Medication Reconciliation Form, Thank You Letter, Antibiotic Education, Prescription Opioid Use. Follow up: Private Physician; When: 7 - 10 days; Reason: Recheck today's complaints, Continuance of care, Re-evaluation by your physician. Problem is new. Symptoms are unchanged. jr8
[2020-10-24 22:20] VITALS: O2SAT 100
[2020-10-24 22:21] VITALS: BP 120/80; TEMP 98.5
== END 2020-10-24 22:15 | disposition home or self-care (01) ==
LOC: ER 19:57
DX: U07.1 COVID-19 (principal); Z88.1 Allergy status to other antibiotic agents
CPT/HCPCS: 0240U; 87070; 87081; 99283

== ENCOUNTER 2020-10-30 15:16 | Emergency (ER) | payer OTHER ==
--- OUTSIDE RECORDS SUMMARY | 2020-10-30 15:19 | XMS REPORT | Continuity of Care Document ---
:1995 Author Organization [facility] t Address [address] [place] [address] Care Team Providers Name Role Phone Gerry Philippe Attending Clinician Payers Payer Name Policy Type Policy Number Effective Date Expiration Date S ource Problems Condition Condition Condition Status Onset Resolution Last Treating Co mments Source Name Details Category Date Date Treatment Clinician Date BMI BMI Problem Active [facility] 45[facility]0-49.9, 45.0-49.9, Imelda kes - adult adult [facility] Hypomenorr Hypomenorr Problem Active [facility] hea/oligom hea/oligom Imelda kes - enorrhea enorrhea [facility] IUD IUD Diagnosis Active [facility] (intrauter (intrauter Imelda kes - ine ine Memoria device) in device) in l place [facility] Encounter Encounter Diagnosis Active [facility] - removal of removal of Me moria intrauteri intrauteri l ne ne Outpati contracept contracept en t niya device niya device Cl inics Allergies, Adverse Reactions, Alerts Allergy Allergy Status Severity Reaction(s) Onset Inactive Treating Comm ents Source Name Type Date Date Clinician amoxicil DA Active ID 2015-06 [facility] [place] Amoxicil Adverse Active Info Not [facility] Reaction Available [facility] Medications Ordered Filled Start Stop Current Ordering Indication Dosage Frequency Signature Comments Components Source Medication Medication Date Date Medication? Clinician (SIG) Name Name Meera Thompson Yes Meena [address] [facility] Fe Fe 01-13 [facility] - 00:00: [facility] Mirena (52 Mirena (52 Yes Meena not [facility] MG) MG) 02-26 Carreno defined [facility] - 00:[facility]: [facility] Procedures This patient has no known procedures. Encounters Start End Encounter Admission Attending Care Care Encounter Source Date/Time Date/Time Type Type Clinicians Facility Department ID 2020-08-01 2020-08-01 Office NATE Saab [id number] 08:00:00 08:30:00 Visit Valerie Garrett PORTABLE TRACK LINE MARKER [id number] [facility] [id number] MATERNAL [id number] & CHILD [address] [place] [address] 2018-01-13 2018-01-13 [facility] [id number] 10:30:00 10:30:00 t [facility] 2017-12-02 2017-12-02 [facility] [id number] 13:45:00 13:45:00 t [facility] Results Test Description Test Time Test Comments Results Result [facility] e Comments - US [facility] 2020-10-05 UP 13:53:00 [facility] FERNANDEZ : 1995 Sex: F Patient Name: GINGER HARRIS Unit No: [id number] EXAMS: CPT CODE: [id number] [place] [address] [facility] [address], [place] [address] OBSTETRICAL ULTRASOUND REPORT ------- Pat. Name: GINGER HARRIS Pat. No: [id number] Study Date: 10/05/2020 12:49pm , Age: 11 1995, 25 Pregnancies: 2, Para 1 LMP: Unknown GA by US: 21w5d GA Selected: 22w1d (From Known E) SID: 02/07/2021 Referring MD: DMITRIY TOVAR Swim Instructor: Estrellita Gilmore RDMS CPT4: USPREGFU Admitting MD: DMITRIY TOVAR Hist/Ind: FOLLOW UP HEART AND BRAIN ANATOMY SCAN 1 ------- MEASUREMENTS AGE GROWTH EVALUATION Measurement GA Range Srce %for GA Ratios ----- ---- ------- ---- BPD 5.2 cm 21w6d (78w4t-54o4p) Hadl BPD 43% FL/BPD 0.72 HC 19.3 cm 21w3d (05b1a-47j5q) Hadl HC 29% FL/AC 0.21 (0.20 - 0.24) APD 5.6 cm APD HC/AC 1.08 (1.04 - 1.23) TAD 5.8 cm TAD CI 0.80 (0.70 - 0.86) AC 17.9 cm 22w4d (94k5d-58m9b) Hadl AC 59% FL 3.8 cm 21w4d (91p6f-19v2u) Hadl FL 38% HL 3.7 cm 23w0d (56k4d-28a4y) Aram HL 64% GA for sonogram 21w5d (55d0r-47w4l) Weight Estimate: based on (BPD,HC,AC,FL) Hadlock Weight: [...] is no evidence of placenta previa. [facility] NAME: GINGER HARRIS Radiology Department PHYS: Dmitriy Gaxiola DO [address] : 1995 AGE: 25 SEX: [place], [place] [address] LOC: TalishaRAD PHONE #: [phone] EXAM DATE: 10/05/2020 STATUS: REG CLI FAX #: [phone] RAD NO: Page 1 Signed Report (CONTINUED) Patient Name: GINGER HARRIS Unit No: [id number] EXAMS: CPT CODE: [id number] [place] FLW UP 20311 <Continued> Amniotic fluid volume is normal. Uterus and adnexa: No significant abnormality is seen. Thank you for allowing us to participate in the care of this patient. Hema Byrd M.D. Electronic Signature 10/05/2020 01:53pm at 1353 Reported and signed by: Hema Byrd MD CC: Chucky Sorenson MD; Dmitriy Tovar DO Technologist: Mali Stallworth RDMS; Estrellita Probe: Trnscrbd D/ (1353) [email or web address] Orig Print D/T: S: 10/05/2020 ([id number]) [facility] NAME: GINGER HARRIS Radiology Department PHYS: [address] Dmitriy Tovar DO [address] : 1995 AGE: 25 SEX: F [place] [address] LOC: TalishaRAD PHONE #: [phone] EXAM DATE: 10/05/2020 STATUS: REG CLI FAX #: [phone] RAD NO: Page 2 Signed Report Patient Name: GINGER HARRIS Unit No: [id number] EXAMS: CPT CODE: [id number] [place] [address] <Continued> [facility] NAME: GINGER HARRIS Radiology Department PHYS: DORYAiyanaDmitriy Fletcher DO [address] : 1995 AGE: 25 SEX: F [place] [address] LOC: Jeanmarie.RAD PHONE #: [phone] EXAM DATE: 10/05/2020 STATUS: REG CLI FAX #: [phone] RAD NO: Page 3 Signed Report
[2020-10-30 17:58] LABS: Basophils % 0.2 % (0-1.3); MPV 7.3 fL (7.6-11.3); RBC Red Blood Cell Count 4.49 M/uL (3.86-4.86)
[2020-10-30 18:21] LABS: ALT/SGPT 77 U/L (12-78); AST/SGOT 49 U/L (15-37); Albumin 3.1 g/dL (3.4-5.0); Alkaline Phosphatase 140 U/L (45-117); BUN Blood Urea Nitrogen 7 mg/dL (7-18); Bicarbonate 20 mmol/L (21-32); Bilirubin Total 0.8 mg/dL (0.2-1.0); Glucose Level 98 mg/dL (74-106); Potassium 3.3 mmol/L (3.5-5.1); Protein, Total 7.9 g/dL (6.4-8.2); Sodium Level 138 mmol/L (136-145); Troponin (Emerg Dept Use Only) < 0.02 ng/mL (0.0-0.045)
[2020-10-30 18:46] LABS: Protime INR 1.07
--- NOTE | 2020-10-30 18:58 | RAD REPORT ---
EXAM DESCRIPTION: USExtrem Venous W Compress Bil10/30/2020 6:51 pm CLINICAL HISTORY: Leg swelling COMPARISON: none FINDINGS: The common femoral, superficial femoral, popliteal and posterior tibial veins bilaterally are compressible and demonstrate augmentation. Doppler demonstrates good flow. IMPRESSION: No evidence of deep venous thrombosis involving either lower extremity.
--- NOTE | 2020-10-30 19:33 | RAD REPORT ---
EXAM DESCRIPTION: CT - Chest For Pe Angio - 10/30/2020 7:21 pm CLINICAL HISTORY: sob COMPARISON: None. TECHNIQUE: Dynamically enhanced axial 3 mm thick images of the chest were obtained during administra tion of <100> mL Isovue 370 IV contrast. Coronal and oblique reconstruction images were generated and reviewed. Exam utilizes a protocol for optimal evaluation of pulmonary arterial tree. Maximum intensity projections 3D imaging was utilized All CT scans are performed using dose optimization technique as appropriate and may include automated exposure control or mA/KV adjustment according to patient size. FINDINGS: The opacification of the pulmonary arteries is suboptimal. A pulmonary embolus is not seen. A thoracic aortic aneurysm is not noted. A pleural effusion is not seen. Trace pericardial effusion. Heart is borderline enlarged Mild to moderate bilateral ground-glass opacities. Mild hilar lymphadenopathy Fatty liver IMPRESSION: Suboptimal opacification of pulmonary arteries. No gross pulmonary embolus is seen Mild to moderate bilateral ground-glass opacities within the lungs may indicate Covid pneumonia
[2020-10-30] MEDS ORDERED: MAGNESIUM SULFATE 1 gm IVPB 1 GM/100 ML BAG IV ONE (20:05)
[2020-10-30] MEDS ORDERED: dexAMETHasone 10 MG/ML VIAL ONE (20:05)
--- NOTE | 2020-10-30 20:45 | ER ---
Nurse's Notes [facility] Name: Nazanin Schmid Age: 25 yrs Sex: Female : 1995 Arrival Date: 10/30/2020 Time: 15:17 Bed 26 Private MD: Diagnosis: Coronavirus infection, unspecified;Tachycardia, unspecified;Dyspnea Presentation: 10/30 16:03 Note pt went to L\T\D to be cleared at this time. tw2 16:06 Note pt still in L\T\D at this time. tw2 16:24 Chief complaint: Patient states: i am having trouble breathing. it started last night. tw2 i have cough and congestion. i was COVID POSITIVE last Thursday. I took been taking Robitussin, vitamin C \T\ zinc. Coronavirus screen: Client presents with at least one sign or symptom that may indicate coronavirus-19. Standard/surgical mask placed on the client. Provider contacted for isolation considerations. Client reports previous positive COVID test result. Date of collection: October 24, 2020. Ebola Screen: Patient denies travel to an Ebola-affected area in the 21 days before illness onset. Initial Sepsis Screen: Does the patient meet any 2 criteria? HR > 90 bpm. Yes Does the patient have a suspected source of infection? Yes: Productive cough/pneumonia. Risk Assessment: Do you want to hurt yourself or someone else? Patient reports no desire to harm self or others. Onset of symptoms was October 30, 2020. 16:24 Method Of Arrival: Ambulatory tw2 16:24 Acuity: ZARA 2 tw2 Triage Assessment: 16:26 General: Appears in no apparent distress. uncomfortable, obese, Behavior is calm, tw2 cooperative, appropriate for age. Pain: Denies pain. Cardiovascular: Reports palpitations. Respiratory: Reports shortness of breath at rest on exertion cough that is Onset: The symptoms/episode began/occurred last night, the patient has moderate shortness of breath. Historical: - Allergies: 16:27 Amoxicillin (rash); tw2 - Home Meds: 16:27 Vitamin Oral [Active]; tw2 - PMHx: 16:28 None; tw2 - PSHx: 16:27 ; right arm; tw2 - Immunization history:: Adult Immunizations. - Social history:: Smoking status: . Screenin:05 Abuse screen: Denies threats or abuse. Nutritional screening: No deficits noted. vg1 Tuberculosis screening: No symptoms or risk factors identified. Fall Risk No fall in past 12 months (0 pts). No secondary diagnosis (0 pts). IV access (20 points). Ambulatory Aid- None/Bed Rest/Nurse Assist (0 pts). Gait- Normal/Bed Rest/Wheelchair (0 pts) Mental Status- Oriented to own ability (0 pts). Total Ramon Fall Scale indicates No Risk (0-24 pts). Assessment: 17:02 General: Appears in no apparent distress. uncomfortable, Behavior is calm, cooperative. vg1 Pain: Pain currently is 5 out of 10 on a pain scale. Also complains of shortness of breath, and pt stated 'it hurts when I take a deep breath'. Neuro: Level of Consciousness is awake, alert, obeys commands, Oriented to person, place, time, situation. Cardiovascular: Patient's skin is warm and dry. Respiratory: Reports shortness of breath cough that is pain with respiration Airway is patent Respiratory effort is even, unlabored, Respiratory pattern is regular, tachypnea Breath sounds are diminished in right posterior lower lobe. GI: No signs and/or symptoms were reported involving the gastrointestinal system. : No signs and/or symptoms were reported regarding the genitourinary system. EENT: No signs and/or symptoms were reported regarding the EENT system. Derm: Skin is intact, is healthy with good turgor. Musculoskeletal: Circulation, motion, and sensation intact. 20:13 Reassessment: Patient appears in no apparent distress at this time. No changes from vg1 previously documented assessment. Patient and/or family updated on plan of care and expected duration. Pain level reassessed. Patient is alert, oriented x 3, equal unlabored respirations, skin warm/dry/pink. 21:42 Reassessment: Attempted to call report. vg1 22:29 Reassessment: [facility] Pt is bb A\T\O x 4, resp unlabored, IV site intact, patent, with fluids infusing. Vital Signs: 16:24 BP 128 / 85; Pulse 143; Resp 24; Temp 97.9(TE); Pulse Ox 97% on R/A; Weight 119.75 kg tw2 (R); Height 4 ft. 11 in. (149.86 cm); 17:05 BP 135 / 92; Pulse 132; Resp 24; Pulse Ox 97% on 2 lpm NC; vg1 17:55 BP 135 / 92; Pulse 128; Resp 20; Pulse Ox 97% on 2 lpm NC; vg1 18:00 BP 141 / 94; Pulse 124; Resp 26; Pulse Ox 97% on 2 lpm NC; vg1 19:00 BP 144 / 85; Pulse 129; Resp 30; Pulse Ox 97% on 2 lpm NC; vg1 20:00 BP 121 / 88; Pulse 135; Resp 32; Pulse Ox 96% on 2 lpm NC; vg1 21:39 BP 131 / 98; Pulse 130; Resp 22; Pulse Ox 100% ; vg1 22:28 BP 148 / 93; Pulse 135; Resp 20; Temp 98.3(O); Pulse Ox 96% on R/A; bb 16:24 Body Mass Index 53.32 (119.75 kg, 149.86 cm) tw2 16:24 provider notified tw2 21:39 Pt currently on neb treatment vg1 ED Course: 15:17 Patient arrived in ED. as 16:26 Triage completed. tw2 16:27 Arm band placed on. tw2 16:44 Gualberto Malloy PA is PHCP. [facility] 16:44 Raffy Alvarado MD is Attending Physician. jmm 17:05 Patient has correct armband on for positive identification. Placed in gown. Bed in low vg1 position. Call light in reach. Side rails up X 1. 17:46 Initial lab(s) drawn, by or, sent to lab. Inserted saline lock: 20 gauge in left vg1 antecubital area, using aseptic technique. Blood collected. 17:49 Adela Matute, RN is Primary Nurse. vg1 18:31 EKG done, by ED staff, reviewed by Gualberto YODER. vg1 18:52 US Extremity Venous W Compression Saud In Process Unspecified. EDMS 19:21 CT Chest For PE Angio In Process Unspecified. EDMS 19:[address]. Dmitriy Thomson's office number. He put out a page for the tt3 physician to call to speak with PARESH Galindo, provider of pt. 20:04 Initiated transfer through [facility] for [facility]. Call was connected to willy Galindo, pt provider for consultation. 20:34 Niharika with the [facility] transfer center called back with their physician to consult with PARESH Amador, provider of pt regarding the transfer request. 20:52 Niharika with [facility] called back with admin approval. The accepting physician is Dr. Avila. tt3 The pt is going to [facility]. Katrina Damon was the name given for the MOT. Nurse to call report to . Face sheet, MOT and covid result to be faxed to per Niharika's request. 22:10 No provider procedures requiring assistance completed. Patient transferred, IV remains vg1 in place. Administered Medications: 20:10 Drug: Decadron - Dexamethasone 10 mg Route: IVP; Site: left antecubital; vg1 21:00 Follow up: Response: No adverse reaction vg1 20:12 Drug: Magnesium Sulfate 1 grams Route: IVPB; Infused Over: 1 hrs; Site: left vg1 antecubital; 21:15 Follow up: IV Status: Completed infusion; IV Intake: 100ml vg1 21:34 Drug: AZITHromycin 500 mg Route: PO; vg1 22:14 Follow up: Response: No adverse reaction vg1 21:35 Drug: Xopenex (levalbuterol) (3) 1.25 mg Route: Inhalation; vg1 22:14 Follow up: Response: No adverse reaction vg1 21:35 Drug: NS 0.9% 1000 ml Route: IV; Rate: 125 ml/hr; Site: left antecubital; vg1 22:14 Follow up: IV Status: Infusion continued upon transfer vg1 Intake: 21:15 IV: 100ml; Total: 100ml. vg1 Outcome: 20:45 ER care complete, transfer ordered by MD. chapman 22:12 Transferred by ground EMS [facility] vg1 22:12 Condition: stable 22:12 Instructed on the need for transfer. 22:30 Patient left the ED. bb Signatures: Dispatcher [employer] EDMS Gualberto Malloy PA PA jmm Martinez, Amelia as Ballard, Brenda RN RN Carlota Abbott RN RN tw2 Adela Matute, RN RN vg1 Priyanka, Kentrell tt3
--- NOTE | 2020-10-30 20:45 | EDPHYS ---
Physician Documentation [facility] Name: Nazanin Schmid Age: 25 yrs Sex: Female : 1995 Arrival Date: 10/30/2020 Time: 15:17 Bed 26 Private MD: ED Physician Raffy Alvarado HPI: 10/30 16:48 This 25 yrs old Female presents to ER via Ambulatory with complaints of jmm Shortness Of Breath - covid+, 25 wks preg. 16:48 The patient has shortness of breath at rest. Onset: The symptoms/episode began/occurred jmm today. Duration: The symptoms are continuous. The patient's shortness of breath is aggravated by nothing, is alleviated by nothing. Associated signs and symptoms: Pertinent positives: non-productive cough, fever. The patient has not experienced similar symptoms in the past. This is a 25 year old currently 25 weeks iup that presents to the ED with complaints of shortness of breath beginning acutely today. Diagnosed with covid approx 1 week ago. . Historical: - Allergies: 16:27 Amoxicillin (rash); tw2 - Home Meds: 16:27 Vitamin Oral [Active]; tw2 - PMHx: 16:28 None; tw2 - PSHx: 16:27 ; right arm; tw2 - Immunization history:: Adult Immunizations. - Social history:: Smoking status: . ROS: 16:48 Constitutional: Negative for fever, chills, and weight loss, Cardiovascular: Negative jmm for chest pain, palpitations, and edema. 16:48 Respiratory: Positive for cough, shortness of breath. 16:48 All other systems are negative. Exam: 16:48 Constitutional: This is a well developed, well nourished patient who is awake, alert, jmm and in no acute distress. Head/Face: atraumatic. Eyes: EOMI, no conjunctival erythema appreciated ENT: Moist Mucus Membranes Neck: Trachea midline, Supple Chest/axilla: Normal chest wall appearance and motion. 16:48 Respiratory: Normal respirations, no respiratory distress appreciated Abdomen/GI: Non distended, soft Back: Normal ROM Skin: General appearance color normal MS/ Extremity: Moves all extremities, no obvious deformities appreciated, no edema noted to the lower extremities Neuro: Awake and alert, normal gait Psych: Behavior is normal, Mood is normal, Patient is cooperative and pleasant 16:48 Cardiovascular: Rate: tachycardic, Rhythm: regular. Vital Signs: 16:24 BP 128 / 85; Pulse 143; Resp 24; Temp 97.9(TE); Pulse Ox 97% on R/A; Weight 119.75 kg tw2 (R); Height 4 ft. 11 in. (149.86 cm); 17:05 BP 135 / 92; Pulse 132; Resp 24; Pulse Ox 97% on 2 lpm NC; vg1 17:55 BP 135 / 92; Pulse 128; Resp 20; Pulse Ox 97% on 2 lpm NC; vg1 18:00 BP 141 / 94; Pulse 124; Resp 26; Pulse Ox 97% on 2 lpm NC; vg1 19:00 BP 144 / 85; Pulse 129; Resp 30; Pulse Ox 97% on 2 lpm NC; vg1 20:00 BP 121 / 88; Pulse 135; Resp 32; Pulse Ox 96% on 2 lpm NC; vg1 21:39 BP 131 / 98; Pulse 130; Resp 22; Pulse Ox 100% ; vg1 22:28 BP 148 / 93; Pulse 135; Resp 20; Temp 98.3(O); Pulse Ox 96% on R/A; bb 16:24 Body Mass Index 53.32 (119.75 kg, 149.86 cm) tw2 16:24 provider notified tw2 21:39 Pt currently on neb treatment vg1 MDM: 16:48 Patient medically screened. maria elena 20:27 Data reviewed: vital signs, nurses notes. Counseling: I had a detailed discussion with [facility] the patient and/or guardian regarding: the historical points, exam findings, and any diagnostic results supporting the discharge/admit diagnosis, lab results, radiology results, the need for further work-up and treatment in the hospital. ED course: I discussed the patient with Dr. Avila whom is manager of community relations for the patient's OBGYN. Recommended ER to ER transfer for evaluation. . 10/30 17:03 Order name: CBC with Diff; Complete Time: 18:08 [facility] 10/30 17:03 Order name: CMP; Complete Time: 18:23 [facility] 10/30 17:03 Order name: Troponin (emerg Dept Use Only); Complete Time: 18:23 [facility] 10/30 17:36 Order name: D-Dimer [facility] 10/30 17:36 Order name: PT-INR; Complete Time: 18:51 [facility] 10/30 17:36 Order name: D-Dimer; Complete Time: 18:51 [facility] 10/30 17:03 Order name: US Extremity Venous W Compression Saud; Complete Time: 19:03 [facility] 10/30 18:52 Order name: CT Chest For PE Angio; Complete Time: 19:35 [facility] 10/30 21:11 Order name: COVID-19 : Document "Date of Symptom Onset" if Symptomatic. tt3 10/30 17:03 Order name: EKG - Nurse/Tech; Complete Time: 18:30 [facility] 10/30 17:03 Order name: Saline Lock; Complete Time: 17:57 [facility] Administered Medications: 20:10 Drug: Decadron - Dexamethasone 10 mg Route: IVP; Site: left antecubital; vg1 21:00 Follow up: Response: No adverse reaction vg1 20:12 Drug: Magnesium Sulfate 1 grams Route: IVPB; Infused Over: 1 hrs; Site: left vg1 antecubital; 21:15 Follow up: IV Status: Completed infusion; IV Intake: 100ml vg1 21:34 Drug: AZITHromycin 500 mg Route: PO; vg1 22:14 Follow up: Response: No adverse reaction vg1 21:35 Drug: Xopenex (levalbuterol) (3) 1.25 mg Route: Inhalation; vg1 22:14 Follow up: Response: No adverse reaction vg1 21:35 Drug: NS 0.9% 1000 ml Route: IV; Rate: 125 ml/hr; Site: left antecubital; vg1 22:14 Follow up: IV Status: Infusion continued upon transfer vg1 Disposition: 10/31 11:32 Co-signature as Attending Physician, Raffy Alvarado MD I agree with the assessment and maria elena plan of care. Disposition: 10/30/20 20:45 [facility] to [facility]. Diagnosis are Coronavirus infection, unspecified, Tachycardia, unspecified, Dyspnea. - Reason for transfer: Higher level of care. - Accepting physician is Dr. Avila. - Condition is Stable. - Problem is new. - Symptoms are unchanged. Signatures: Dispatcher [employer] Raffy Bangura MD MD cha Mickail, Joel, PA PA Vera Joseph, RN RN bb Carlota Cerda RN RN tw2 Adela Matute RN RN vg1 Corrections: (The following items were deleted from the chart) 10/30 22:30 20:45 10/30/2020 20:45 Transfer ordered to [facility]. Diagnosis is Coronavirus bb infection, unspecified; Tachycardia, unspecified; Dyspnea. Reason for transfer: Higher level of care. Accepting physician is Dr. Avila. Condition is Stable. Problem is new. Symptoms are unchanged. [facility]
[2020-10-30] MEDS ORDERED: AZITHROMYCIN 250 MG TAB ONE (21:41)
[2020-10-30] MEDS ORDERED: LEVALBUTEROL 1.25 MG/3 ML NEB ONE (21:41)
[2020-10-30] MEDS ORDERED: NA CHLORIDE 0.9% 1,000 ML ONE (21:41)
[2020-10-30 23:00] VITALS: BP 148/93; TEMP 98.3; O2SAT 96
--- NOTE | 2020-11-01 07:23 | EKG ---
Test Date: 2020-10-30 Test Time: 18:23:22 Airbrush Painter: ANNABELLA MEASUREMENT RESULTS: Intervals: Rate: 122 OH: 112 QRSD: 88 QT: 326 QTc: 464 [place]: P: 35 OH: 112 QRS: 64 T: 37 INTERPRETIVE STATEMENTS: Sinus tachycardia Otherwise normal ECG Compared to ECG 02/19/2018 00:04:03 Sinus rhythm no longer present Left ventricular hypertrophy no longer present Electronically Signed On 11-01-20 07:18:31 CDT by Kilo Rico
== END 2020-10-30 22:30 ==
LOC: ER 15:16
DX: O98.512 Other viral diseases complicating pregnancy, second trimester (principal); U07.1 COVID-19; O99.891 Other specified diseases and conditions complicating pregnancy; R00.0 Tachycardia, unspecified; Z3A.25 25 weeks gestation of pregnancy; Z88.1 Allergy status to other antibiotic agents
CPT/HCPCS: 85025; 36415; 85610; 85379; 84484; 80053; 71275; 93970; Q9967; J3475; J1100; J7030; 93005; 96361; 96365; 96375; 99285